=== PATIENT | female | born 1985 | race Caucasian/White ===

== ENCOUNTER 2018-05-17 13:57 | Emergency (ER) | payer BC, OTHER ==
[~2018-05-17] VITALS: Ht 154.9 cm; Wt 54.4 kg
[~2018-05-17 13:57] MED LIST: COLACE 100 MG100 MG PO; FAMOTIDINE 10 M10 MG PO; HYDROCODONE-AP1 EAC6 PO; IBUPROFEN 600600 M1 PO; LIDOCAINE VISC100 M1 MM; MAXALT MLT ODT10 M1 PO; NORCO 5-325 TA1 EACH PO; NUVARING VAGIN1 EACH VAG; PERCOCET PO; PRENATAL; PRENATE PLUS T1 EAC1 PO; SERTRALINE HCL50 MG PO; SIMETHICON CHEW80 MG PO; YAZ 28 TABLET1 EACH PO
[2018-05-17 14:41] LABS: BASOPHILS 0.7 % (0.0-2.0); EOSINOPHILS 0.4 % (0.0-3.0); HEMATOCRIT 41.1 % (37.0-47.0); HEMOGLOBIN 14.5 gm/dL (12.0-15.0); LYMPHOCYTES 15.6 % (24.0-44.0); MCH 32.1 pg (26.0-34.0); MCHC 35.3 g/dL (28.0-37.0); MCV 90.8 fL (80.0-100.0); MONOCYTES 6.2 % (1.0-8.0); PLATELET COUNT 174 thou/uL (150-400); POLYS 77.1 % (36.0-66.0); RBC 4.52 mil/uL (4.20-5.00); WBC 3.9 thou/uL (4.0-11.0)
[2018-05-17 14:45] LABS: CALCIUM 9.4 mg/dL (8.5-10.1); CREATININE 0.8 mg/dL (0.6-1.0); POTASSIUM 3.7 mmol/L (3.5-5.1)
[2018-05-17 15:45] LABS: ALBUMIN 4.1 g/dL (3.4-5.0); DIRECT BILIRUBIN 0.1 mg/dL (<0.1-0.3); TOTAL BILIRUBIN 0.4 mg/dL (<0.1-1.0); TOTAL PROTEIN 7.3 g/dL (6.4-8.2)
[2018-05-17 16:52] LABS: VOLUME 6 ml
[2018-05-17 16:53] LABS: CSF CLARITY CLEAR; CSF COLOR COLORLESS
[2018-05-17 16:57] LABS: CSF GLUCOSE 72 mg/dL (40-70)
[2018-05-17 17:00] LABS: CSF RBC 0 /mm3; CSF WBC 2 /mm3 (0-10)
[2018-05-17] MEDS ORDERED: ZOFRAN ODT4 MG PO (17:54)
[2018-05-17] MEDS ORDERED: PHENERGAN 25 MG25 M1 PO (17:54)
== END 2018-05-17 18:23 | disposition home or self-care (01) ==
LOC: ER 13:57
PROVIDERS: Emergency Medicine
DX: R51 Headache (principal); M79.1 Myalgia; R11.10 Vomiting, unspecified; Z90.89 Acquired absence of other organs; Z98.890 Other specified postprocedural states; Z88.5 Allergy status to narcotic agent